=== PATIENT | male | born 1950 | race Caucasian/White ===

== ENCOUNTER 2018-05-15 11:13 | Emergency (ER) | payer MEDICARE, OTHER ==
--- NOTE | 2018-05-15 11:34 | ER Document Report ---
ED Medical Screen (RME) - General Chief Complaint: Dizziness Stated Complaint: DIZZINESS Time Seen by Provider: 05/15/18 11:32 Mode of Arrival: Ambulatory Information source: Patient Notes: This is a 67-year-old man with a history of diabetes, hypertension, chronic back pain who presents to the emergency room with disequilibrium. Patient states that he awoke at 5 AM to feed the cats and was having difficulty ambulating because of dizziness. He states that the symptoms have persisted. He does have a history of glaucoma. TRAVEL OUTSIDE OF THE [place] IN LAST 30 DAYS: No - Related Data Allergies/Adverse Reactions: No Known Allergies Allergy (Verified 05/15/18 11:25) Past Medical History - Social History Frequency of alcohol use: weekly Drug Abuse: None - Past Medical History Cardiac Medical History: Reports: Hx Hypertension Denies: Hx Coronary Artery Disease, Hx Heart Attack Pulmonary Medical History: Denies: Hx Asthma, Hx Bronchitis, Hx COPD, Hx Pneumonia Neurological Medical History: Denies: Hx Cerebrovascular Accident, Hx Seizures Renal/ Medical History: Denies: Hx Peritoneal Dialysis Musculoskeltal Medical History: Reports Hx Arthritis - lower spine Past Surgical History: Reports: Hx Neurologic Surgery - back surg x2 - Immunizations Hx Diphtheria, Pertussis, Tetanus Vaccination: No - unknown Doctor's Discharge - Discharge Referrals: LALA NUNEZ MD [Primary Care Provider] - Follow up as needed
[2018-05-15 12:00] LABS: ABSOLUTE EOSINOPHILS # (AUTO) 0.2 10^3/uL (0.0-0.6); ABSOLUTE LYMPHOCYTES (AUTO) 1.2 10^3/uL (0.5-4.7); ABSOLUTE MONOCYTES (AUTO) 0.6 10^3/uL (0.1-1.4); ABSOLUTE NEUT (AUTO) 2.3 10^3/uL (1.7-8.2); BASOPHILS % (AUTO) 0.9 % (0-2); EOSINOPHILS % (AUTO) 4.6 % (0-6); HEMATOCRIT 40.3 % (37.9-51.0); HEMOGLOBIN 14.1 g/dL (13.5-17.0); LYMPHOCYTES % (AUTO) 27.5 % (13-45); MEAN CORPUSCULAR HEMOGLOBIN 32.1 pg (27.0-33.4); MEAN CORPUSCULAR VOLUME 92 fl (80-97); MONOCYTES % (AUTO) 13.2 % (3-13); PLATELET COUNT 192 10^3/uL (150-450); RED CELL DISTRIBUTION WIDTH 12.6 % (11.5-14.0); SEGMENTED NEUTROPHILS % (AUTO) 53.8 % (42-78); TOTAL CELLS COUNTED % (AUTO) 100 %; WHITE BLOOD COUNT 4.4 10^3/uL (4.0-10.5)
--- NOTE | 2018-05-15 12:01 | ER Document Report ---
ED Dizziness/Weakness - General Chief Complaint: Dizziness Stated Complaint: DIZZINESS Time Seen by Provider: 05/15/18 11:32 Mode of Arrival: Ambulatory TRAVEL OUTSIDE OF THE [place] IN LAST 30 DAYS: No - HPI Notes: 67-year-old male presents to the emergency department complaining of some disequilibrium/dizziness and dull headache. Patient's cats will come up at 5 AM he went to get up and feed them. Said he felt a little off balance at that point and had a dull headache right between his eyes above his nose. He stated he felt off balance. He denied any extremity numbness tingling or weakness initially he does have history of lower extremity numbness and tingling and today he felt as if both were little numb and tingling more than normal he has had back surgery and has had screws placed accidentally into his nerves during surgery and has intermittent episodes of neuropathy. The patient's primary concern was the dizziness disequilibrium and head ache. He describes just a dull pressure between his eyes. He states he does have some nasal congestion and coughing. Denies fever chills denies sore throat. Denies any earaches. Denied any extremity numbness tingling or weakness no facial numbness. - Related Data Allergies/Adverse Reactions: No Known Allergies Allergy (Verified 05/15/18 11:25) Past Medical History - General Information source: Patient - Social History Smoking Status: Never Smoker Frequency of alcohol use: weekly Drug Abuse: None Family History: None Patient has suicidal ideation: No Patient has homicidal ideation: No - Past Medical History Cardiac Medical History: Reports: Hx Hypertension Denies: Hx Coronary Artery Disease, Hx Heart Attack Pulmonary Medical History: Denies: Hx Asthma, Hx Bronchitis, Hx COPD, Hx Pneumonia Neurological Medical History: Denies: Hx Cerebrovascular Accident, Hx Seizures Renal/ Medical History: Denies: Hx Peritoneal Dialysis Musculoskeletal Medical History: Reports Hx Arthritis - lower spine Past Surgical History: Reports: Hx Neurologic Surgery - back surg x2 - Immunizations Hx Diphtheria, Pertussis, Tetanus Vaccination: No - unknown Review of Systems - Review of Systems Constitutional: denies: Chills, Diaphoresis, Fever EENT: Sinus pressure Respiratory: Cough. denies: Hemoptysis, Short of breath Gastrointestinal: denies: Abdominal pain, Nausea, Vomiting Musculoskeletal: denies: Back pain Neurological/Psychological: Gait changes, Headaches, Tingling. denies: Paralysis, Lost consciousness -: Yes All other systems reviewed and negative Physical Exam - Vital signs Vitals: Resp Pulse Ox 12 96 05/15/18 12:06 05/15/18 12:06 - Notes Notes: GENERAL_APPEARANCE: well_nourished, alert, cooperative, no_acute_distress, no_ obvious_discomfort. VITALS: reviewed, see vital signs table. HEAD: no_swelling\tenderness on the head. EYES: PERRL, EOMI, conjunctiva_clear. NOSE: Clear_nasal_discharge. Bilateral turbinate inflammation MOUTH: (-)decreased moisture. THROAT: no_tonsilar_inflammation, no_airway_obstruction. no_lymphadenopathy NECK: supple, no_neck_tenderness, (-)thyromegaly. BACK: no_back_tenderness. CHEST_WALL: no_chest_tenderness. LUNGS: no_wheezing, no_rales, no_rhonchi, (-)accessory muscle use, good air exchange bilateral. HEART: normal_rate, normal_rhythm, normal_S1, normal_S2, (-)S3, (-)S4, no_ murmur, no_rub. ABDOMEN: normal_BS, soft, no_abd_tenderness, (-)guarding, (-)rebound, no_ organomegaly, no_abd_masses. EXTREMITIES: strength 5/5 in all_extremities, good pulses in all_extremities, no_swelling\tenderness in the extremities, no_edema. SKIN: warm, dry, good_color, no_rash. MENTAL_STATUS: speech_clear, oriented_X_3, normal_affect, responds_ appropriately to questions. NEURO: Neg Motor or Sensory Deficits on exam, CN 2-12 intact, DTR 2+ symmetric x 4, No cerbellar signs Course - Re-evaluation Re-evalutation: 05/15/18 12:00 67-year-old male who presents with some dizziness and a very dull headache. He denied any unilateral extremity numbness tingling or weakness is a history of back problems and neuropathy. Had some lower extremity tingling earlier today but that was transient. This is not unexpected. Patient denies any falls or trauma. He does complain of some nasal congestion cough. Points between his eyes for the discomfort and he states it feels like pressure. He has not had very many sinus problems in his life. Does not have very many headaches. He called into his doctor's office to get seen and they sent him here to the ER. Patient stated he is feeling okay now but wanted to be checked out. 05/15/18 14:36 CT scan of the brain was normal and workup was fairly unrevealing of significant pathology. I spoke with the and patient. He had ate a meal while he was here and states he is feeling much better. He stated the dizziness seems to come more when he sits up. Advised him to hydrate. I explained him that CT scan has significant limitations for stroke. Especially if there is any cerebellar involvement. He verbalized understanding this they are happy to go home and if he has any more symptoms or this returns will return to the ER to be reevaluated. Again patient has no extremity numbness tingling or weakness at this time due to his past surgeries in his back he has neuropathy bilateral lower extremities again my suspicion for stroke is low at this time. However we could not 100% rule it out and the and patient understand this. They will return if any other symptoms recur and will follow up with her doctor. - Vital Signs Vital signs: Temp Pulse Resp BP Pulse Ox 15 139/86 H 99 05/15/18 14:01 05/15/18 14:01 05/15/18 14:01 - Laboratory Result Diagrams: 05/15/18 11:35 05/15/18 11:35 Laboratory results interpreted by me: 05/15/18 05/15/18 11:35 11:35 Monocytes % 13.2 H BUN 21 H Glucose 163 H - Diagnostic Test Radiology reviewed: Image reviewed Radiology results interpreted by me: 05/15/18 14:[address] 05/15/18 11:32 IMPRESSION: NORMAL BRAIN CT WITHOUT CONTRAST. EVIDENCE OF ACUTE STROKE: NO. - EKG Interpretation by Me EKG shows normal: Sinus rhythm Rate: Normal Rhythm: NSR Discharge - Discharge Clinical Impression: Dizziness Condition: Good Disposition: HOME, SELF-CARE Instructions: Dizziness (OM) Additional Instructions: Please return to the ER if his symptoms do not improve or get worse. Follow-up with your doctor Referrals: LALA NUNEZ MD [Primary Care Provider] - Follow up as needed
[2018-05-15 12:20] LABS: ALANINE AMINOTRANSFERASE 40 U/L (21-72); ALBUMIN 4.3 g/dL (3.5-5.0); ALKALINE PHOSPHATASE 56 U/L (38-126); ANION GAP 12 (5-19); ASPARTATE AMINO TRANSFERASE 27 U/L (17-59); BILIRUBIN,DIRECT 0.3 mg/dL (0.0-0.4); BILIRUBIN,TOTAL 0.6 mg/dL (0.2-1.3); BLOOD UREA NITROGEN 21 mg/dL (7-20); CALCIUM 9.5 mg/dL (8.4-10.2); CARBON DIOXIDE 28 mmol/L (22-30); CHLORIDE 100 mmol/L (98-107); CREATINE KINASE 66 U/L (55-170); GLUCOSE 163 mg/dL (75-110); POTASSIUM 4.3 mmol/L (3.6-5.0); TOTAL PROTEIN 7.4 g/dL (6.3-8.2)
[2018-05-15 12:31] LABS: CREATINE KINASE MB 0.96 ng/mL (<4.55)
[2018-05-15 12:33] LABS: TROPONIN I < 0.012 ng/mL
--- NOTE | 2018-05-15 13:25 | RADIOLOGY REPORT (SQ) ---
EXAM DESCRIPTION: CT HEAD WITHOUT COMPLETED DATE/TIME: 05/15/2018 1:17 pm REASON FOR STUDY: disequilibrium COMPARISON: None. TECHNIQUE: Axial images acquired through the brain without intravenous contrast. Images reviewed wi th bone, brain and subdural windows. Additional sagittal and coronal reconstructions were generated. Images stored on PACS. All CT scanners at this facility use dose modulation, iterative reconstruction, and/or weight based d osing when appropriate to reduce radiation dose to as low as reasonably achievable (ALARA). [facility]: Dose Right [facility]: CareDose [facility]: Dose Right [facility]: Teradose 4D [facility]: Extreme Plastics Plus RADIATION DOSE: CT Rad equipment meets quality standard of care and radiation dose reduction techniq ues were employed. CTDIvol: 53.2 mGy. DLP: 1044 mGy-cm. mGy. LIMITATIONS: None. FINDINGS: VENTRICLES: Normal size and contour. CEREBRUM: No masses. No hemorrhage. No midline shift. No evidence for acute infarction. Normal gra y/white matter differentiation. No areas of low density in the white matter. CEREBELLUM: No masses. No hemorrhage. No alteration of density. No evidence for acute infarction. EXTRAAXIAL SPACES: No fluid collections. No masses. ORBITS AND GLOBE: No intra- or extraconal masses. Normal contour of globe without masses. CALVARIUM: No fracture. PARANASAL SINUSES: No fluid or mucosal thickening. SOFT TISSUES: No mass or hematoma. OTHER: No other significant finding. IMPRESSION: NORMAL BRAIN CT WITHOUT CONTRAST. EVIDENCE OF ACUTE STROKE: NO. COMMENT: Quality ID # [id number]: Final reports with documentation of one or more dose reduction techniques (e.g., Automated exposure control, adjustment of the mA and/or kV according to patient size, use of iterative reconstruction technique) TECHNICAL DOCUMENTATION: JOB ID: [id number] [employer]- All Rights Reserved Reading location - IP/workstation name: [email or web address]
[2018-05-15 14:21] VITALS: BP 139/86
--- NOTE | 2018-05-15 22:08 | EKG REPORT ---
SEVERITY:- ABNORMAL ECG - SINUS RHYTHM FIRST DEGREE AV BLOCK BORDERLINE LEFT AXIS DEVIATION : Confirmed by: Mindi Gao 15-May-2018 22:07:58
== END 2018-05-15 15:05 | disposition home or self-care (01) ==
LOC: ER 11:13
DX: R42 Dizziness and giddiness (principal); R51 Headache; R09.81 Nasal congestion; I10 Essential (primary) hypertension
CPT/HCPCS: 36415; 70450; 80053; 82550; 82553; 84484; 85025; 93005; 93010; 99284